=== PATIENT | male | born 1970 | race Caucasian/White ===

== ENCOUNTER 2025-04-15 20:55 | Inpatient (IN) | payer BC ==
[~2025-04-15 20:55] MED LIST: Iopamidol 370 76% 100 ML VIAL ONE
[2025-04-15] MEDS ORDERED: Ondansetron PF 4 MG/2 ML Vial ONE (21:13)
[2025-04-15 21:23] LABS: #Basophils 0.04 10x3/uL (0.0-0.2); #Eosinophils 0.13 10x3/uL (0.0-0.7); #Monocytes 0.85 10x3/uL (0.11-0.59); #Neutrophils 7.39 10x3/uL (1.40-6.50); %Basophils 0.4 % (0.0-1.0); %Eosinophils 1.3 % (0.0-10.0); %Lymphocytes 17.5 % (21.0-51.0); %Monocytes 8.3 % (0.0-10.0); %Neutrophils 72.2 % (42.0-75.0); Hematocrit 41.7 % (42.0-52.0); Hemoglobin 14.1 g/dL (14.0-18.0); Mean Corpuscular Hemoglobin 31.1 pg (27.0-31.0); Mean Corpuscular Volume 91.9 fL (78.0-98.0); Platelet Count 217 10x3/uL (130-400); Red Blood Cell (RBC) Count 4.54 mill/uL (4.70-6.10); White Blood Cell (WBC) Count 10.23 10x3/uL (4.8-10.8)
[2025-04-15] MEDS ORDERED: HYDROmorphone 0.5 MG/0.5 ML SYRINGE ONE ×3 (21:42→23:35)
[2025-04-15 22:46] LABS: Acetaminophen Less than 10 mcg/mL (Less than 10); Salicylate Less than 8.0 mg/dL (Less than 8.0)
[2025-04-15 22:47] LABS: ALT (SGPT) 41 U/L (Less than 45); AST (SGOT) 48 U/L (11-34); Albumin 5.5 g/dL (3.1-4.5); Alkaline Phosphatase 69 U/L (40-110); Anion Gap 24 mmol/L (10-20); BUN (Urea Nitrogen) 25 mg/dL (8.4-25.7); Bilirubin, Total 1.0 mg/dL (0.3-1.2); Calc. Creatinine Clearance 0 mL/min (70-130); Calcium 10.6 mg/dL (7.8-10.44); Carbon Dioxide 15 mmol/L (22-29); Chloride 105 mmol/L (98-107); Globulin 3.6 g/dL (2.4-3.5); Glucose 65 mg/dL (70-105); Potassium 3.8 mmol/L (3.5-5.1); Sodium 140 mmol/L (136-145)
[2025-04-15] MEDS ORDERED: Ondansetron PF 4 MG/2 ML Vial IVP PRN (23:18)
[2025-04-15] MEDS ORDERED: hydrALAZINE 20 MG/ML VIAL SLOW IVP PRN (23:18)
[2025-04-15] MEDS ORDERED: Cyclobenzaprine 10 MG TAB ONE (23:42)
[2025-04-16 00:37] VITALS: BMI 28.0
[2025-04-16 04:55] LABS: #Basophils 0.03 10x3/uL (0.0-0.2); #Eosinophils Less than 0.03 10x3/uL (0.0-0.7); #Monocytes 0.78 10x3/uL (0.11-0.59); #Neutrophils 8.49 10x3/uL (1.40-6.50); %Basophils 0.3 % (0.0-1.0); %Eosinophils 0.0 % (0.0-10.0); %Lymphocytes 6.7 % (21.0-51.0); %Monocytes 7.8 % (0.0-10.0); %Neutrophils 84.9 % (42.0-75.0); Hematocrit 37.9 % (42.0-52.0); Hemoglobin 12.5 g/dL (14.0-18.0); Mean Corpuscular Hemoglobin 30.9 pg (27.0-31.0); Mean Corpuscular Volume 93.8 fL (78.0-98.0); Platelet Count 170 10x3/uL (130-400); Red Blood Cell (RBC) Count 4.04 mill/uL (4.70-6.10); White Blood Cell (WBC) Count 10.00 10x3/uL (4.8-10.8)
[2025-04-16 05:19] LABS: Anion Gap 18 mmol/L (10-20); BUN (Urea Nitrogen) 19 mg/dL (8.4-25.7); Calc. Creatinine Clearance 94 mL/min (70-130); Calcium 9.0 mg/dL (7.8-10.44); Carbon Dioxide 19 mmol/L (22-29); Chloride 106 mmol/L (98-107); Glucose 116 mg/dL (70-105); Potassium 4.6 mmol/L (3.5-5.1); Sodium 138 mmol/L (136-145)
[2025-04-16] MEDS ORDERED: HYDROcodone/Acetaminophen 5/325 mg Tablet PO PRN (07:59)
[2025-04-16] MEDS: Acetaminophen 325 MG TAB PO PRN (08:04)
[2025-04-16] MEDS: Methocarbamol 500 MG TAB PO PRN (08:05)
[2025-04-16] MEDS ORDERED: CEFAZOLIN 2 GM VIAL ONE (12:26)
[2025-04-16] MEDS ORDERED: PROPOFOL 20 ML ONE (12:49)
[2025-04-16] MEDS ORDERED: fentaNYL PF 100 MCG/2 ML SYRINGE ONE (12:49)
[2025-04-16] MEDS ORDERED: Rocuronium Bromide 10 MG/ML (10ML VIAL) ONE (12:50)
[2025-04-16] MEDS ORDERED: Lidocaine 1% PF 5 ML VIAL ONE (13:07)
[2025-04-16] MEDS ORDERED: HYDROmorphone 2 MG/ML VIAL ONE (14:52)
[2025-04-16] MEDS ORDERED: Ketorolac Tromethamine 30 MG (1 mL) VIAL ONE (15:10)
[2025-04-16] MEDS ORDERED: Ondansetron PF 4 MG/2 ML Vial ONE (15:10)
[2025-04-16] MEDS ORDERED: Ondansetron PF 4 MG/2 ML Vial IVP PRN (15:16)
[2025-04-16] MEDS ORDERED: diphenhydrAMINE 50 MG/ML VIAL IM PRN (15:16)
[2025-04-16] MEDS ORDERED: diphenhydrAMINE 50 MG/ML VIAL IVP PRN (15:16)
[2025-04-16] MEDS ORDERED: diphenhydrAMINE 25 MG CAP PO PRN (15:16)
[2025-04-16] MEDS ORDERED: PCA Communication Order-Pharmacy FS SCH (15:30)
[2025-04-16] MEDS ORDERED: Communication Order-Pharmacy FS SCH (16:00)
[2025-04-16] MEDS: Ketorolac Tromethamine 30 MG (1 mL) VIAL IVP SCH (21:28)
[2025-04-16] MEDS: Aspirin 81 mg Enteric Coated Tablet PO SCH (21:28)
[2025-04-17] MEDS: HYDROmorphone HCl/0.9% NaCl/PF 30 ML IV SCH (04:10)
[2025-04-17 05:58] LABS: #Basophils Less than 0.03 10x3/uL (0.0-0.2); #Eosinophils Less than 0.03 10x3/uL (0.0-0.7); #Monocytes 1.19 10x3/uL (0.11-0.59); #Neutrophils 7.88 10x3/uL (1.40-6.50); %Basophils 0.1 % (0.0-1.0); %Eosinophils 0.2 % (0.0-10.0); %Lymphocytes 6.9 % (21.0-51.0); %Monocytes 12.1 % (0.0-10.0); %Neutrophils 80.1 % (42.0-75.0); Hematocrit 32.3 % (42.0-52.0); Hemoglobin 10.5 g/dL (14.0-18.0); Mean Corpuscular Hemoglobin 30.9 pg (27.0-31.0); Mean Corpuscular Volume 95.0 fL (78.0-98.0); Platelet Count 146 10x3/uL (130-400); Red Blood Cell (RBC) Count 3.40 mill/uL (4.70-6.10); White Blood Cell (WBC) Count 9.84 10x3/uL (4.8-10.8)
[2025-04-17 06:16] LABS: Anion Gap 11 mmol/L (10-20); BUN (Urea Nitrogen) 17 mg/dL (8.4-25.7); Calc. Creatinine Clearance 94 mL/min (70-130); Calcium 8.0 mg/dL (7.8-10.44); Carbon Dioxide 26 mmol/L (22-29); Chloride 104 mmol/L (98-107); Glucose 129 mg/dL (70-105); Potassium 4.3 mmol/L (3.5-5.1); Sodium 137 mmol/L (136-145)
[2025-04-17] MEDS: HYDROcodone/Acetaminophen 10/325 mg Tablet PO PRN ×2 (10:04→21:48)
[2025-04-17] MEDS: Methocarbamol 500 MG TAB PO PRN (10:04)
[2025-04-17] MEDS: Morphine IR 10 MG/5 ML UDCUP PO PRN (11:29)
[2025-04-17] MEDS: Gabapentin 300 MG CAP PO SCH (14:14)
[2025-04-17] MEDS: Ketorolac Tromethamine 30 MG (1 mL) VIAL IVP PRN (21:49)
[2025-04-18 06:05] LABS: Anion Gap 13 mmol/L (10-20); BUN (Urea Nitrogen) 14 mg/dL (8.4-25.7); Calc. Creatinine Clearance 93 mL/min (70-130); Calcium 7.8 mg/dL (7.8-10.44); Carbon Dioxide 27 mmol/L (22-29); Chloride 103 mmol/L (98-107); Glucose 118 mg/dL (70-105); Potassium 3.5 mmol/L (3.5-5.1); Sodium 139 mmol/L (136-145)
[2025-04-18 06:32] LABS: #Basophils 0.03 10x3/uL (0.0-0.2); #Eosinophils 0.16 10x3/uL (0.0-0.7); #Monocytes 0.80 10x3/uL (0.11-0.59); #Neutrophils 3.98 10x3/uL (1.40-6.50); %Basophils 0.5 % (0.0-1.0); %Eosinophils 2.7 % (0.0-10.0); %Lymphocytes 15.8 % (21.0-51.0); %Monocytes 13.5 % (0.0-10.0); %Neutrophils 67.0 % (42.0-75.0); Hematocrit 28.5 % (42.0-52.0); Hemoglobin 9.3 g/dL (14.0-18.0); Mean Corpuscular Hemoglobin 31.8 pg (27.0-31.0); Mean Corpuscular Volume 97.6 fL (78.0-98.0); Platelet Count 137 10x3/uL (130-400); Red Blood Cell (RBC) Count 2.92 mill/uL (4.70-6.10); White Blood Cell (WBC) Count 5.94 10x3/uL (4.8-10.8)
[2025-04-18] MEDS: Senokot S 8.6-50 MG TAB PO SCH (09:52)
[2025-04-18] MEDS: HYDROcodone/Acetaminophen 10/325 mg Tablet PO PRN (10:54)
[2025-04-18 15:49] VITALS: BP 105/70; TEMP 98.1
== END 2025-04-18 16:49 | disposition home or self-care (01) | DRG 493 ==
LOC: ERS 20:55 → SURG B 23:18 → SURG A 04-16 00:16
PROVIDERS: ADMIT Surgery; ATTEND Surgery
PROC: 0QSK04Z Reposition Left Fibula with Internal Fixation Device, Open Approach (ICD-10-PCS; principal; 2025-04-15)
PROC: 0QSH04Z Reposition Left Tibia with Internal Fixation Device, Open Approach (ICD-10-PCS; 2025-04-15)
DX: S89.302A Unspecified physeal fracture of lower end of left fibula, initial encounter for closed fracture (principal); S82.142A Displaced bicondylar fracture of left tibia, initial encounter for closed fracture; F41.9 Anxiety disorder, unspecified; Z79.899 Other long term (current) drug therapy; W11.XXXA Fall on and from ladder, initial encounter
CPT/HCPCS: 29505; 36415; 36416; 70450; 71045; 71260; 72125; 74177; 80048; 80053; 80307; 83605; 85025; 96374; 96375; 96376; C1713; J1100; J1171; J1885; J2250; J2270; J2405; J2704; J3010; J7030; Q9967